=== PATIENT | female | born 1945 | race Caucasian/White ===

== ENCOUNTER 2016-04-21 08:59 | Day surgery (SDC) | payer MEDICARE, BC ==
[~2016-04-21 08:59] MED LIST: RINGERS SOLUTION,LACTATED 1,000 ML IV PRN; ceFAZolin SODIUM 1 GM VIAL IV PRN
--- OUTSIDE RECORDS SUMMARY | 2016-04-21 09:04 | XMS REPORT | Continuity of Care Document ---
:1945 Author Organization [facility] [place] [address] Care Team Providers Name Role Phone Provider, None Per Patient Primary Care Provider Unavailable Source Comments This disclosure is being made pursuant to the Brigade program and maynot contain all information available regarding this patient.[facility] Active Allergies and Adverse Reactions Allergen Noted Date Severity Reactions Comments Codeine 10/23/2014 Low Anxiety Iodine 10/23/2014 High Hives Current Medications Be aware that medications may not be up to date as of this document. Alwaysverify current medications with the patient. Prescription Sig. Disp. Refills Start Date End Date Status amlodipine-benazepril (LOTREL) 5-20 MG 0 09/01/2014 Active per capsule metoprolol-hydrochlorothiazide 0 09/01/2014 Active (LOPRESSOR HCT) 100-25 MG per tablet simvastatin (ZOCOR) 40 MG tablet 0 09/01/2014 Active omeprazole (PRILOSEC) 40 MG capsule 0 09/15/2014 Active FLUVIRIN SUSP 0 11/04/2014 Active Active Problems Not on file Most Recent Encounters Date Type Specialty Providers Description 01/27/2016 Data Import Social History Tobacco Use Types Packs/Day Years Used Date Former Smoker Quit: 07/17/1997 Smokeless Tobacco: Never Used Plan of Care Date Type Specialty Providers Description 06/22/2016 Appointment Ophthalmology Bob Perdomo MD [address] [place] [address] [phone] (Fax) Health Maintenance Due Date Last Done Comments Tetanus/Pertussis (1 - Tdap) 1964 Colonoscopy 06/16/1995 Mammogram 06/16/1995 Well Adult Visit 06/16/1995 Zoster Vaccine 60+ 2005 Bone Density 2010 Pneumococcal Low/Medium Risk 65+ (1 of 2 - PCV13) 2010 Influenza Immunization (#1) 2015 Results from Last 3 Months Not on file
[2016-04-21] MEDS ORDERED: RINGERS SOLUTION,LACTATED 1,000 ML IV ONE (10:00)
[2016-04-21] MEDS ORDERED: BUPIVACAINE HCL 50 ML VIAL IJ ONE (10:20)
--- NOTE | 2016-04-21 10:35 | OR ---
Operative Report - Dictated Report Narrative: Date: 04/21/2016 Physician: Sid Allred M.D. User Experience Lead: Augustus Hernandez PA-C Preoperative diagnosis: Right thumb Trigger finger Postoperative diagnosis: Right thumb Trigger finger Procedure: Right thumb A1 araseli release Anesthesia: MAC Plus local Complications: None Estimated blood loss: Minimal Tourniquet time: 5 Minutes with forearm esmarch band Specimens: None Retained implants: None Drains: None Indications: Mrs. Dominique Is a 70 year-old female who has been followed in my clinic with complaints of trigger finger. Physical exam as demonstrated triggering of the finger. Conservative measures have failed including but not limited to passage of time, activity modification, medications, and injections. The risks, benefits, and alternatives were discussed in clinic. The risks being bleeding, infection, nerve, tendon, blood vessel injury, persistent pain, wound competitions, need for additional procedures, and persistent symptoms. Consent was obtained in the clinic. Procedure: After marking the correct extremity in the preoperative holding area, a timeout was performed in the operating room. IV antibiotics consisting of Ancef were administered prior to the procedure. A forearm esmarch tourniquet was applied to the operative upper arm. The arm was exsanguinated and esmarch band was applied 0.5% Marcaine without epinephrine was infused into the projected incision site at the palmar flexion crease over the metacarpal phalangeal joint in line with the digit. Using loupe magnification, a transverse incision in the appropriate palmar flexion crease in line with the digit. Blunt dissection was carried down through the subcutaneous tissues using bipolar cautery for hemostasis. Care was taken to protect the digital nerves. Staying midline along the flexor tendon, the A1 araseli was identified. A jevon was made in the proximal edge of the A1 araseli and tenotomies were utilized in order to completely transect the A1 araseli. Care was to stay midline and avoid transection of the A2 araseli. Soft tissues overlying the flexor tendon proximal to the A1 araseli were also released ensuring that there were no other compressive structures contributing to the triggering. The finger was placed through range of motion and demonstrated no additional catching. The tendons were visualized and mobilized out of the wound, and did not demonstrate any gross pathology or masses that required debridement. The tendons were noted to be intact. Once was felt that we had decompressed the flexor tendons as they passed under the A1 araseli, the tourniquet was removed. Hemostasis was obtained with pressure and bipolar cautery. There was good return of color and capillary refill to the digit. Additional half percent Marcaine without epinephrine was infused into the skin edges. The wound was thoroughly irrigated. The skin was closed with interrupted 4-0 nylon. Sterile dressings consisting of Xeroform, 4 x 4, and Karuna were applied. All sponge, needle, blade, and instrument counts were correct prior to closing the wounds. The patient was awoken and transferred to the postanesthesia care unit in stable condition.
[2016-04-21 11:47] VITALS: BP 133/54
== END 2016-04-21 09:00 | disposition home or self-care (01) ==
LOC: AMB 08:59
PROVIDERS: ATTEND Orthopaedic Surgery
PROC: 0LN70ZZ Release Right Hand Tendon, Open Approach (ICD-10-PCS; principal; 2016-04-21 10:00)
DX: M65.311 Trigger thumb, right thumb (principal); I10 Essential (primary) hypertension; E78.5 Hyperlipidemia, unspecified; Z87.891 Personal history of nicotine dependence; Z68.41 Body mass index [BMI] 40.0-44.9, adult

== ENCOUNTER 2018-07-04 20:35 | Observation (INO) ==
[2018-07-04] MEDS ORDERED: PANTOPRAZOLE SODIUM 40 MG/100 ML PIGGYBACK IV ONE (20:59)
[2018-07-04] MEDS ORDERED: NORMAL SALINE 1,000 ML IV ONE (20:59)
[2018-07-04] MEDS ORDERED: ONDANSETRON HCL/PF 2 MG/ML VIAL IV ONE (20:59)
--- NOTE | 2018-07-04 21:04 | ERNOTE ---
GI Bleeding/Rectal Pain ER Date of Service: 07/04/18 Presenting Symptoms: rectal bleeding Time Seen by Provider: 07/04/18 20:49 Source: patient Immunizations: IMMUNIZATION HX Immunizations Up to Date Yes History of Influenza Vaccine Yes Hx Pneumococcal Vaccination Yes Allergies/Adverse Reactions: Allergies Iodinated Contrast- Oral and IV Dye [Iodinated Contrast Media - IV Dye] Allergy (Intermediate, Verified 07/04/18 20:42) Hives codeine Allergy (Mild, Verified 07/04/18 20:42) unusre propoxyphene HCl [From Darvon] Allergy (Mild, Verified 07/04/18 20:42) unsure Home Medications: HOME MEDICATIONS diphenhydrAMINE HCL [Benadryl] 50 mg PO HS PRN 03/29/16 [Last Taken Unknown] Ca 600 mg-D3 800 unit-mag oxide 50 vw-My-amsuvh-manganese-boron tablet 2 tab PO DAILY tab 12/13/17 [Last Taken Unknown] vitamin E (dl, acetate) 400 unit capsule 400 unit PO DAILY 12/13/17 [Last Taken Unknown] omeprazole 40 mg capsule,delayed release 40 mg PO DAILY #90 cap 03/18/18 [Last Taken Unknown] amlodipine 5 mg-benazepril 40 mg capsule 1 cap PO DAILY #90 cap 04/29/18 [Last Taken Unknown] simvastatin 20 mg tablet 20 mg PO HS #90 tab 05/27/18 [Last Taken Unknown] hydrocodone 5 mg-acetaminophen 325 mg tablet 1 tab PO Q8H PRN #30 tab 06/14/18 [Last Taken Unknown] Narrative: This is a 73-year-old female who presents to the emergency department around 9 PM. Patient states about 2 hours ago she felt the urge to defecate. She went into the toilet and had a bowel movement however at the end of the bowel movement there was a significant amount of bright red blood. Patient says that she thought she would be okay so she is just got a watch and see what happened. A short time later she had the urge to defecate again and said that this time it was only bright red blood. She had 4 more episodes of just bright red blood without any stool. She has had no fever. She has had some mild epigastric periumbilical abdominal pain for several days to weeks. Patient has a history of peptic ulcer disease. She is not taking any anti-inflammatory medicines. She is not feeling dizzy, lightheaded or passing out. She is having no chest pain or shortness of breath. No palpitations. She does say she feels a little bit nauseated. When she had a peptic ulcer disease she only had a trace amount of blood in the stool. The patient has no other complaints such as fever or chills. No vomiting. No urinary symptoms or neurologic symptoms Review of Systems - Review of Systems Constitutional: Present: no symptoms reported EYE: Present: no symptoms reported ENT: Present: no symptoms reported Respiratory: Present: no symptoms reported Cardiology: Present: no symptoms reported Gastrointestinal/Abdominal: Present: See HPI, abdominal pain, other - GI bleed Genitourinary: Present: no symptoms reported Musculoskeletal: Present: no symptoms reported Skin: Present: no symptoms reported Neurological: Present: no symptoms reported Endocrine: Present: no symptoms reported Hematologic/Lymphatic: Present: no symptoms reported Psych: Present: no symptoms reported All Other Systems: All systems neg except as marked Medical History (Updated 07/04/18 @ 22:40 by Prieto Galvan MD) URI (upper respiratory infection) (Acute) Peptic ulcer (Chronic) Onset Date: Unknown Hypertension (Chronic) Onset Date: Unknown Hyperlipidemia (Chronic) Onset Date: Unknown Cervical malignant neoplasm (Chronic) Onset Date: Unknown Trigger thumb of right hand Onset Date: Unknown Surgical History: Surgical History (Updated 10/25/17 @ 14:36 by Deisi Sampson RN) H/O colonoscopy Onset Date: Unknown Dr Chavez-done every 3 years History of appendectomy Onset Date: ~1952 History of cholecystectomy Onset Date: ~1984 History of esophagogastroduodenoscopy (EGD) Onset Date: ~2015 Dr Chavez-repeat in one year History of hysterectomy Onset Date: ~1971 Hx of cataract surgery Onset Date: Unknown S/P trigger finger release Onset Date: ~04/[address] Allred Family History: Family History (Updated 10/25/17 @ 14:38 by Deiis Sampson RN) Father Cancer Diabetes Myocardial infarction Hypertension Mother Myocardial infarction Grandmother Myocardial infarction Hypertension Grandmother Cancer Hypertension Grandfather CVA (cerebral vascular accident) Hypertension Grandfather Cancer Hypertension Social History: Preferred Language Ukrainian Smoking Status Former smoker Abuse History No History of abuse Psych History No pertinent hx Alcohol Use none Drug Use none (Last Updated 06/19/18 @ 12:09 by JOSÉ MIGUEL Ku) No Social History Section defined Physical Exam - Physical Exam General Appearance: Present: wd/wn, alert, no apparent distress Head Exam: Present: normal inspection, no evidence of injury Eye Exam: Normal inspection: bilateral, PERRL: bilateral, Conjunctivae pale: bilateral - Conjunctiva are normal. They are not pale Ears, Nose, Throat: Present: normal ENT inspection, normal pharynx Neck: Present: normal inspection, nontender Respiratory: Present: no respiratory distress, normal breath sounds, lungs clear Cardiovascular/Chest: Present: regular rate, rhythm, no murmur Gastrointestinal/Abdominal: Present: other - Patient with mild periumbilical abdominal pain. Positive bowel sounds. No pulsatile mass. Rectal Exam: Present: other - Deferred due to the nature of the patient's bleeding. Back Exam: Present: normal inspection, normal range of motion, no CVA tenderness, no vertebral tenderness Extremity Exam: Present: normal inspection, non-tender, normal range of motion Neurological Exam: Present: alert, oriented, normal mood/affect, no motor/sensory deficits Skin Exam: Present: normal color, warm/dry Lymphatic Exam: Present: no adenopathy Progress - Results and Orders Patient's Lab Results:: I have reviewed the patient's lab results. - Vital Signs Patient's Vital Signs:: I have reviewed the patient's vital signs. Vital Signs: Vital Signs 07/04/18 20:39 Temperature 36.5 C Pulse Rate 83 Respiratory Rate 16 Blood Pressure 157/98 H O2 Sat by Pulse Oximetry 97 - Progress/Reassessment Chief Complaint: GI Bleed Progress:: Unchanged Progress Note-Subjective: 07/04/18 22:38 Patient has had another bowel movement. She says that there is still blood in it but it seems darker and a bit thicker. Remains hemodynamically stable Plan - Plan Plan: This is a 73-year-old female with significant lower GI bleeding. She does have a history of an ulcer so I will place her in the. The NG suction comes back clear we will pull the NG tube. She is allergic to oral and IV dye so CAT scan is not going to be of assistance. She is hemodynamically stable at this time however the amount of blood in the fact that is bright red makes me concerned that she could decompensate. She is going to need to be admitted to the hospital. I will speak with the surgeon to see if this is something he would manage but I anticipate she will need to be transferred I discussed the case with the surgeon on-call, Dr. Gomez. He says a patient like this who is still bleeding as long as they are hemodynamically stable would be best served by getting a bleeding scan. If the bleeding stops then she would need to be prepped and get a colonoscopy, but likely as an outpatient. If she becomes hemodynamically unstable would need to be transferred to a center with intervention. I then spoke with the family practice doctor articulation officer, Dr. Triana. I made her aware that the patient has normal hemoglobin and hematocrit, normal vital signs, feels well. I made her aware that the patient has had another bloody bowel movement here. She is willing to keep the patient here with the understanding that I notify the patient that if things deteriorate she will need to have an emergent transfer. The patient is okay with this. I will put in for a hemoglobin hematocrit at about 4 AM. GI bleeding was assessed with an NG tube. It was placed and x-ray showed it to be in the stomach. No blood was suctioned out. The NG tube was removed. Departure Clinical Impression: GI (gastrointestinal bleed) - Departure Disposition: Still a patient Condition: Fair Referrals: Mame Mcdermott FNP [Primary Care Provider] -
[2018-07-04 21:13] LABS: Hematocrit 41.7 % (37.0-47.0); Mean Cell Volume 94.1 fl (78-100); Mean Corpuscular Hemoglobin 29.3 pg (27-31); Mean Corpuscular Hgb Conc 31.2 g/dl (32-36); Mean Platelet Volume 8.9 fl (8-12.5); Neutrophil # 7.5 K/mm3 (1.3-6.0); Neutrophil % 72.1 % (42-75.0); Platelet Count 251 K/mm3 (150-450); Red Blood Count 4.43 M/mm3 (4.2-5.4); Red Cell Distribution Width 13.7 % (11.5-14.0); White Blood Count 10.4 K/mm3 (4.0-10.5)
[2018-07-04 21:29] LABS: Albumin * 3.6 gm/dl (3.4-5.0); Anion Gap 12.9 mmol/L (6.8-13.8); Bilirubin, Total 0.3 mg/dL (0.0-1.1); Ca. Corrected For Albumin 9.7 mg/dL (8.4-10.2); Calcium * 9.7 mg/dL (7.9-10.9); Carbon Dioxide 29.4 mmol/L (24-32.6); Potassium 4.3 mmol/L (3.4-4.6); Total Protein 7.8 gm/dL (6.2-8.2)
[2018-07-05] MEDS: NORMAL SALINE 1,000 ML IV PRN ×2 (02:22→09:25)
[2018-07-05 04:08] LABS: Hematocrit 37.2 % (37.0-47.0); Hemoglobin 11.5 gm/dL (12.5-16.0)
--- NOTE | 2018-07-05 08:10 | HP ---
Chief Complaint - Chief Complaint Date of Service: 07/05/18 Time of Service: 08:10 Chief Complaint: bright red blood per rectum History of Present Illness: Patient presented to the ED after several episodes of bloody bowel movements at home. She stated she got to the point where she was only passing blood. In the ED, her Hgb was 13.0, and her bloody BMs became more dark and firm. She has not had this in the past. Her most recent colonoscopy was 2015. She denies frequent NSAID use. At the time of my exam in the morning, she reported having two dark bloody BMs overnight. She has some pelvic cramping. She said she's had some diarrhea lately, once or twice a week. No recent medication changes. She denies chest pain, shortness of breath, or lower extremity swelling. Medical History (Updated 07/05/18 @ 08:10 by Mame Triana DO) URI (upper respiratory infection) (Acute) Peptic ulcer (Chronic) Onset Date: Unknown Hypertension (Chronic) Onset Date: Unknown Hyperlipidemia (Chronic) Onset Date: Unknown Cervical malignant neoplasm (Chronic) Onset Date: Unknown Trigger thumb of right hand Onset Date: Unknown Surgical History: Surgical History (Updated 07/05/18 @ 08:10 by Mame Triana DO) H/O colonoscopy Onset Date: Unknown Dr Chavez-done every 3 years History of appendectomy Onset Date: ~1952 History of cholecystectomy Onset Date: ~1984 History of esophagogastroduodenoscopy (EGD) Onset Date: ~2015 Dr Chavez-repeat in one year History of hysterectomy Onset Date: ~1971 Hx of cataract surgery Onset Date: Unknown S/P trigger finger release Onset Date: ~04/[address] Allred Family History: Family History (Updated 10/25/17 @ 14:38 by Deisi Sampson RN) Father Cancer Diabetes Myocardial infarction Hypertension Mother Myocardial infarction Grandmother Myocardial infarction Hypertension Grandmother Cancer Hypertension Grandfather CVA (cerebral vascular accident) Hypertension Grandfather Cancer Hypertension Social History: Patient Lives/Resources Home Utilized Preferred Language Kyrgyz Do you have any bahai or Yes: Quaker cultural preference? Smoking Status Former smoker Have you smoked in the past 12 No months Abuse History No History of abuse Psych History No pertinent hx Alcohol Use none Drug Use none (Last Updated 06/19/18 @ 12:09 by JOSÉ MIGUEL Ku) No Social History Section defined Review Of Systems (GEN) - Review of Systems Generalized/Overall Review: Absent: Fever, Weight loss, Weight gain Respiratory: Absent: Shortness of Breath Cardiac: Absent: Chest Pain, Edema Abdominal: Present: Abdominal Pain - cramping, Bright blood from rectum. Absent: Nausea Genitourinary: Present: No Symptoms Reported Skin: Present: No Symptoms Reported Immunizations: IMMUNIZATION HX Immunizations Up to Date Yes History of Influenza Vaccine Yes Hx Pneumococcal Vaccination Yes Allergies/Adverse Reactions: Allergies Allergy/AdvReac Type Severity Reaction Status Date / Time Iodinated Contrast- Oral and Allergy Intermediate Hives Verified 07/04/18 20:42 IV Dye [Iodinated Contrast Media - IV Dye] codeine Allergy Mild unusre Verified 07/04/18 20:42 propoxyphene HCl Allergy Mild unsure Verified 07/04/18 20:42 [facility] Home Medications: HOME MEDICATIONS diphenhydrAMINE HCL [Benadryl] 50 mg PO HS PRN 03/29/16 [Last Taken Unknown] Ca 600 mg-D3 800 unit-mag oxide 50 hx-Pg-rzrfsw-manganese-boron tablet 2 tab PO DAILY tab 12/13/17 [Last Taken Unknown] vitamin E (dl, acetate) 400 unit capsule 400 unit PO DAILY 12/13/17 [Last Taken Unknown] omeprazole 40 mg capsule,delayed release 40 mg PO DAILY #90 cap 03/18/18 [Last Taken Unknown] amlodipine 5 mg-benazepril 40 mg capsule 1 cap PO DAILY #90 cap 04/29/18 [Last Taken Unknown] simvastatin 20 mg tablet 20 mg PO HS #90 tab 05/27/18 [Last Taken Unknown] hydrocodone 5 mg-acetaminophen 325 mg tablet 1 tab PO Q8H PRN #30 tab 06/14/18 [Last Taken Unknown] Exam - Exam Vital Signs: Vital Signs - Last Taken Temp 36.7 C 07/05/18 06:00 Pulse 88 07/05/18 06:00 Resp 16 07/05/18 06:00 BP 125/77 07/05/18 06:00 Pulse Ox 93 07/05/18 06:00 Constitutional: Present: Alert, Oriented x3, Cooperative, Well developed, No distress, Obese Respiratory: Present: lungs clear, normal breath sounds, no respiratory distress Cardiovascular/Chest: Present: regular rate, rhythm Abdomen: Present: obese, tender Extremity: Absent: lower extremity edema Eye contact: Present: cooperative, good eye contact Diagnostic Studies: Abnormal Lab Results 07/04/18 07/04/18 07/05/18 Range/Units 21:07 21:07 04:00 Hgb 11.5 L (12.5-16.0) gm/dL MCHC 31.2 L (32-36) g/dl Immature Gran % (Auto) 0.50 H (0.001-0.429) % Immature Gran # (Auto) 0.05 H (0.000-0.0310) K/mm3 Lymphocytes % 18.1 L (20-51) % Neutrophils # 7.5 H (1.3-6.0) K/mm3 BUN 31 H D (3-23) mg/dL Est GFR (Non-Af Amer) 41 L D (60-130) mL/min BUN/Creatinine Ratio 23.0 H (9.0-21.6) Random Glucose 112 H (70-110) mg/dL Laboratory Results WBC 10.4 K/mm3 (4.0-10.5) 07/04/18 21:07 RBC 4.43 M/mm3 (4.2-5.4) 07/04/18 21:07 Hgb 11.5 gm/dL (12.5-16.0) L 07/05/18 04:00 Hct 37.2 % (37.0-47.0) 07/05/18 04:00 MCV 94.1 fl (78-100) 07/04/18 21:07 MCH 29.3 pg (27-31) 07/04/18 21:07 MCHC 31.2 g/dl (32-36) L 07/04/18 21:07 RDW 13.7 % (11.5-14.0) 07/04/18 21:07 Plt Count 251 K/mm3 (150-450) 07/04/18 21:07 MPV 8.9 fl (8-12.5) 07/04/18 21:07 Immature Gran % (Auto) 0.50 % (0.001-0.429) H 07/04/18 21:07 Immature Gran # (Auto) 0.05 K/mm3 (0.000-0.0310) H 07/04/18 21:07 72.1 % (42-75.0) 07/04/18 21:07 18.1 % (20-51) L 07/04/18 21:07 8.4 % (0.0-9) 07/04/18 21:07 0.4 % (0.0-3.0) 07/04/18 21:07 0.5 % (0.0-1.0) 07/04/18 21:07 Nucleated RBC % 0.0 k/mm3 (0-1) 07/04/18 21:07 7.5 K/mm3 (1.3-6.0) H 07/04/18 21:07 1.88 k/mm3 (1.5-3.5) 07/04/18 21:07 0.9 k/mm3 (0.0-1.0) 07/04/18 21:07 0.0 k/mm3 (0.0-0.7) 07/04/18 21:07 Absolute Basophils 0.1 k/mm3 (0.0-0.1) 07/04/18 21:07 Sodium 142 mmol/L (132-142) 07/04/18 21:07 142 mmol/L (130-142) 07/04/18 21:07 Potassium 4.3 mmol/L (3.4-4.6) 07/04/18 21:07 Chloride 104 mmol/L (97-106) 07/04/18 21:07 Carbon Dioxide 29.4 mmol/L (24-32.6) 07/04/18 21:07 12.9 mmol/L (6.8-13.8) 07/04/18 21:07 BUN 31 mg/dL (3-23) H D 07/04/18 21:07 1.35 mg/dL (0.4-1.4) D 07/04/18 21:07 Est GFR (Non-Af Amer) 41 mL/min (60-130) L D 07/04/18 21:07 23.0 (9.0-21.6) H 07/04/18 21:07 112 mg/dL (70-110) H 07/04/18 21:07 Calcium 9.7 mg/dL (7.9-10.9) 07/04/18 21:07 Calcium Adj for Albumin 9.7 mg/dL (8.4-10.2) 07/04/18 21:07 0.3 mg/dL (0.0-1.1) 07/04/18 21:07 AST 25 U/L (0-48) 07/04/18 21:07 ALT 23 U/L (19-67) 07/04/18 21:07 75 U/L (50-170) 07/04/18 21:07 7.8 gm/dL (6.2-8.2) 07/04/18 21:07 3.6 gm/dl (3.4-5.0) 07/04/18 21:07 Blood Type O Negative 07/04/18 21:07 Antibody Screen Negative 07/04/18 21:07 Assessment/Plan - Assessment/Plan (1) GI (gastrointestinal bleed) Assessment: She denies NSAID use. Likely due to diverticulosis. Unable to find her colonoscopy report from 2016 in [employer] [facility] or [facility]. Her BMs have slowed ove rnight. Her BP, heart rate, and respiratory rates have not been outside normal limits. Hgb of 11.5 early this morning, recheck this afternoon pending. If her Hgb is not decreasing significantly and she is not have further bloody BM's, can DC this evening. Discussed increasing her fiber intake after DC. Problem: Acute (2) Hypertension Assessment: Well controlled. Continue home meds. Problem: Chronic Qualifiers: Hypertension type: essential hypertension Qualified Code(s): I10 - Essential (primary) hypertension (3) Hyperlipidemia Problem: Chronic Qualifiers: Hyperlipidemia type: mixed hyperlipidemia Qualified Code(s): E78.2 - Mixed hyperlipidemia
[2018-07-05 14:07] LABS: Hematocrit 37.5 % (37.0-47.0); Hemoglobin 11.5 gm/dL (12.5-16.0)
--- NOTE | 2018-07-05 14:39 | DS ---
(1) GI (gastrointestinal bleed) Problem: Acute Qualifiers: GI bleed type/associated pathology: diverticulosis Qualified Code(s): K57.91 - Diverticulosis of intestine, part unspecified, without perforation or abscess with bleeding (2) Hypertension Problem: Chronic Qualifiers: Hypertension type: essential hypertension Qualified Code(s): I10 - Essential (primary) hypertension (3) Hyperlipidemia Problem: Chronic Qualifiers: Hyperlipidemia type: mixed hyperlipidemia Qualified Code(s): E78.2 - Mixed hyperlipidemia Description of Stay: Patient presented to the ED after several episodes of bloody bowel movements at home. She stated she got to the point where she was only passing blood. In the ED, her Hgb was 13.0, and her bloody BMs became more dark and firm. She has not had this in the past. She reported her most recent colonoscopy was 2015, but unable to find a report in [facility] or [place].. She denies frequent NSAID use. At the time of my exam in the morning, she reported having two dark bloody BMs overnight. She has some pelvic cramping. She said she's had some diarrhea lately, once or twice a week. No recent medication changes. She denies chest pain, shortness of breath, or lower extremity swelling. Repeat hgb was 11.5 on admission, and again 11.5 that afternoon. She was DC'd home with a referral to surgery for potential colonoscopy. Procedures Performed: none Results and Findings: Lab Pending Results 07/04/18 21:07: WBC 10.4, RBC 4.43, Hgb 13.0, Hct 41.7, MCV 94.1, MCH 29.3, MCHC 31.2 L, RDW 13.7, Plt Count 251, MPV 8.9, Immature Gran % (Auto) 0.50 H, Immature Gran # (Auto) 0.05 H, Neutrophils % 72.1, Lymphocytes % 18.1 L, Monocytes % 8.4, Eosinophils % 0.4, Basophils % 0.5, Nucleated RBC % 0.0, Neutrophils # 7.5 H, Lymphocytes # 1.88, Monocytes # 0.9, Eosinophils # 0.0, Absolute Basophils 0.1 07/04/18 21:07: Sodium 142, Plasma Sodium 142, Potassium 4.3, Chloride 104, Carbon Dioxide 29.4, Anion Gap 12.9, BUN 31 H D, Creatinine 1.35 D, Est GFR (Non-Af Amer) 41 L D, BUN/Creatinine Ratio 23.0 H, Random Glucose 112 H, Calcium 9.7, Calcium Adj for Albumin 9.7, Total Bilirubin 0.3, AST 25, ALT 23, Alkaline Phosphatase 75, Total Protein 7.8, Albumin 3.6 07/04/18 21:07: Blood Type O Negative, Antibody Screen Negative 07/05/18 04:00: Hgb 11.5 L, Hct 37.2 07/05/18 14:01: Hgb 11.5 L, Hct 37.5 Discharge Location: Home Disposition: Home self-care Condition: Fair Discharge Activity: Activity as tolerated Discharge Diet: High Fiber Referrals: Yu Jimenez MD [Staff Physician] - One Week Mame Mcdermott FNP [Primary Care Provider] - One Week Additional Patient Instructions (free text): -Please make TCM appointment unless skilled nursing discharge. Thank you! Citlaly @ [phone]. Complete Home Medications List: Complete Home Medication List: diphenhydrAMINE HCL [Benadryl] 50 mg PO HS PRN 03/29/16 Ca 600 mg-D3 800 unit-mag oxide 50 wb-Yi-tjkytz-manganese-boron tablet 2 tab PO DAILY tab 12/13/17 vitamin E (dl, acetate) 400 unit capsule 400 unit PO DAILY 12/13/17 omeprazole 40 mg capsule,delayed release 40 mg PO DAILY #90 cap 03/18/18 amlodipine 5 mg-benazepril 40 mg capsule 1 cap PO DAILY #90 cap 04/29/18 simvastatin 20 mg tablet 20 mg PO HS #90 tab 05/27/18 hydrocodone 5 mg-acetaminophen 325 mg tablet 1 tab PO Q8H PRN #30 tab 06/14/18
[2018-07-05 15:23] VITALS: BP 172/69
== END 2018-07-05 16:05 | disposition home or self-care (01) ==
LOC: ER 20:35 → INTOOBSV 22:48 → MS 22:48
PROVIDERS: ADMIT Family Medicine; ATTEND Family Medicine
CPT/HCPCS: 36415; 71010; 71045; 80053; 85014; 85018; 85025; 86850; 96361; 96365; 96375; 99285; G0378; J2405